=== PATIENT | female | born 1990 | race Hispanic/Latino ===

== ENCOUNTER 2017-09-26 12:51 | Emergency (ER) | payer BC, MEDICAID ==
[2017-09-26 12:52] VITALS: BMI 18.1
[2017-09-26 13:22] VITALS: RESP 18; TEMP 98.5; O2SAT 100
[2017-09-26 14:10] LABS: URINE BILIRUBIN NEGATIVE (NEGATIVE); URINE BLOOD NEGATIVE (NEGATIVE); URINE GLUCOSE (UA) NEGATIVE (NEGATIVE); URINE LEUKOCYTE ESTERASE TRACE Leu/uL (NEGATIVE); URINE PROTEIN NEGATIVE mg/dL (<30 mg/dL); URINE UROBILINOGEN 0.2 E.U./dL (<1 E.U./dL)
[2017-09-26 14:11] LABS: URINE APPEARANCE CLEAR (CLEAR); URINE COLOR YELLOW (YELLOW)
[2017-09-26 14:17] LABS: URINE BACTERIA FEW (NEG); URINE RBC 0 - 2 /hpf (0-2)
--- NOTE | 2017-09-26 15:01 | ED PDOC ---
Arrival/HPI - General Chief Complaint: Female Genitourinary Time Seen by Provider: 09/26/17 13:53 Historian: Patient - History of Present Illness Narrative History of Present Illness (Text): 09/26/17 15:02 27yr old female presents today with with concerns of a herpes outbreak. Patient states she was last diagnosed with a herpes outbreak in 2016. Patient states yesterday she noticed some burning in the vaginal area and today she noticed a lymph node and she believes that she has herpes again. Patient denies fevers or chills. Denies abdominal pain. No nausea or vomiting. Denies vaginal bleeding or vaginal discharge. No chest pain. Patient states she has a swollen lymph node in the right groin. Patient states last time she had a herpes outbreak she had lymph nodes swollen on both sides the groin. No other complaints. Time/Duration: Other (yesterday) Past Medical History - Provider Review Nursing Documentation Reviewed: Yes - Travel History Have you recently traveled outside [place] w/in the past 3 mons?: No - Past History Past History: No Previous - Infectious Disease Hx of Infectious Diseases: None - Tetanus Immunization Tetanus Immunization: Unknown - Genitourinary/Gynecological Hx Genitourinary Disorders: Yes Other/Comment: HSV. HPV - Psychiatric Hx Depression: No Hx Emotional Abuse: No Hx Physical Abuse: No Hx Substance Use: No - Past Surgical History Past Surgical History: No Previous - Suicidal Assessment Feels Threatened In Home Enviroment: No Family/Social History - Physician Review Nursing Documentation Reviewed: Yes Family/Social History: Unknown Family HX Smoking Status: Heavy Smoker > 10 Cigarettes Daily Hx Alcohol Use: No Hx Substance Use: No Hx Substance Use Treatment: Yes Allergies/Home Meds Allergies/Adverse Reactions: Allergies No Known Allergies Allergy (Verified 09/26/17 13:24) Review of Systems - Review of Systems Constitutional: absent: Fatigue, Fevers Respiratory: absent: SOB, Cough Cardiovascular: absent: Chest Pain, Palpitations Gastrointestinal: absent: Abdominal Pain, Nausea, Vomiting Genitourinary Female: absent: Dysuria, Frequency, Hematuria Musculoskeletal: absent: Arthralgias, Back Pain, Neck Pain Skin: Skin Lesions. absent: Rash, Pruritis Neurological: absent: Headache, Dizziness Hemo/Lymphatic: Adenopathy Psychiatric: absent: Anxiety, Depression Physical Exam Vital Signs Reviewed: Yes Vital Signs Temp Pulse Resp BP Pulse Ox 09/26/17 13:19 98.5 F 91 H 18 116/71 100 Temperature: Afebrile Blood Pressure: Normal Pulse: Regular Respiratory Rate: Normal Appearance: Positive for: Well-Appearing, Non-Toxic, Comfortable Pain Distress: None Mental Status: Positive for: Alert and Oriented X 3 - Systems Exam Head: Present: Atraumatic Mouth: Present: Moist Mucous Membranes Respiratory/Chest: Present: Clear to Auscultation Cardiovascular: Present: Regular Rate and Rhythm Abdomen: No: Tenderness, Distention Genitourinary/Pelvic Exam: Present: Vaginal Lesions (+ few vesicles noted to right labia minora. ), Other (chaparoned by ). No: Normal External Genitalia, Vaginal Discharge, Vaginal Bleeding Neurological: Present: GCS=15 Skin: Present: Warm, Dry Psychiatric: Present: Alert, Oriented x 3 Medical Decision Making ED Course and Treatment: 09/26/17 16:48 27-year-old female presents with a one-day history of herpes outbreak Urinalysis shows positive leukocytes 5-10 white blood cells On pelvic examination the patient was found to have vesicles to the right labia minora Acyclovir 400 mg by mouth given I discussed results in depth with patient advised the patient of herpes outbreak and urinary tract infection. Advised patient to take acyclovir and Keflex. Advised follow-up with [facility]ER and PMD within the next 2 days. Advised immediate return if symptoms worsen persist or if new concerning symptoms develop Patient verbalizes understanding of discharge instructions and need for immediate followup. all aspects of this case were discussed the attending of record. Impression: Genital herpes, UTI Acyclovir one tablet 3 times daily 7 days Keflex one capsule twice daily 7 days Increase fluids Motrin every 6 hours as needed for pain Follow-up with primary care physician within the next 2 days Return if symptoms worsen persist or if new concerning symptoms develop - Lab Interpretations Lab Results: Lab Results 09/26/17 14:00: Urine Color Yellow, Urine Appearance Clear, Urine pH 7.0, Ur Specific [place] 1.020, Urine Protein Negative, Urine Glucose (UA) Negative, Urine Ketones Negative, Urine Blood Negative, Urine Nitrate Negative, Urine Bilirubin Negative, Urine Urobilinogen 0.2, Ur Leukocyte Esterase Trace H, Urine RBC 0 - 2, Urine WBC 5 - 10, Ur Epithelial Cells 6 - 8, Urine Bacteria Few - Medication Orders Current Medication Orders: Discontinued Medications Acyclovir (Zovirax) 400 mg PO STAT STA PRN Reason: Protocol Stop: 09/26/17 14:20 Last Admin: 09/26/17 15:57 Dose: 400 mg Disposition/Present on Arrival - Present on Arrival Any Indicators Present on Arrival: No History of DVT/PE: No History of Uncontrolled Diabetes: No Urinary Catheter: No History of Decub. Ulcer: No History Surgical Site Infection Following: None - Disposition Have Diagnosis and Disposition been Completed?: Yes Diagnosis: Herpes, genital, Urinary tract infection Disposition: HOME/ ROUTINE Disposition Time: 14:58 Patient Plan: Discharge Patient Problems: Current Active Problems Problem Status Onset Herpes, genital Acute Urinary tract infection Acute Condition: GOOD Discharge Instructions (ExitCare): Urinary Tract Infections in Adults, Genital Herpes (DC) Additional Instructions: Acyclovir one tablet 3 times daily 7 days Keflex one capsule twice daily 7 days Increase fluids Motrin every 6 hours as needed for pain Follow-up with primary care physician within the next 2 days Return if symptoms worsen persist or if new concerning symptoms develop Prescriptions: Acyclovir [Zovirax] 400 mg PO TID #21 tab Cephalexin [Keflex] 500 mg PO BID #14 capsule Ibuprofen [Motrin Tab] 400 mg PO Q6H PRN #20 tab PRN Reason: Pain, Mild (1-3) Referrals: [facility] [Outside] - Follow up with primary Azalia Rock MD [Staff Provider] - Follow up with primary Elise Redd MD [Medical Doctor] - Follow up with primary Forms: [facility] ([place]), WORK NOTE
[2017-09-26 19:56] VITALS: BP 110/75; PULSE 72
== END 2017-09-26 16:00 | disposition home or self-care (01) ==
LOC: ED 12:51
DX: A60.00 Herpesviral infection of urogenital system, unspecified (principal); N39.0 Urinary tract infection, site not specified
CPT/HCPCS: 81001; 87086; 99283; J8499